=== PATIENT | male | born 1975 | race Native Hawaiian/Other Pacific Islander ===

== ENCOUNTER 2017-12-21 10:15 | Observation (INO) ==
[2017-12-21] MEDS ORDERED: Sod Chloride 0.9% Inj 1,000 ML IV.SIG ONE (11:10)
--- NOTE | 2017-12-21 11:34 | ED ---
HPI General Chief Complaint: Abdominal Pain Stated Complaint: poss kidney stone Time Seen by Provider: 12/21/17 11:10 Source: patient Mode of arrival: ambulatory Limitations: no limitations History of Present Illness HPI narrative: 42-year-old male the presents to the ED for evaluation of right flank pain that is not improving. Patient was seen here on 17 December for evaluation of same. It was found to have by 5 mm stone with some mild hydronephrosis on the right kidney. He was given pain medication and Flomax. He states that he has been compliant with the medications with the pain continues and keeps coming and going. He is very concerned that his kidney function remained to be doing well and because of all the medications he is taking that his liver might be trouble. Per patient he tried to get in contact with multiple physicians but he was unsuccessful at getting an appointment. He denies any chest pain or shortness of breath. Per patient the pain comes every 2 hours. Per patient has been taking diclofenac sodium, Lortab and Percocet. Per patient she believes that he needs to be admitted for further evaluation and possible kidney stone removal. Currently states that his pain is 3 out of 10 but he knows the ones we given pain meds his pain will go away and then come back in 2 hours. She denies any other medical issues. Per patient when the pain gets severe is 10 out of 10 Related Data Home Medications Medication Instructions Recorded Confirmed metformin 500 mg PO BID 12/17/17 12/21/17 rosuvastatin [Crestor] 5 mg PO HS 12/17/17 12/21/17 Previous Rx's Medication Instructions Recorded hydrocodone-acetaminophen [Vicodin] 1 tab PO Q6H PRN #3 tab 12/17/17 ketorolac 10 mg PO Q6H PRN 5 Days #14 tab 12/17/17 tamsulosin [Flomax] 0.4 mg PO DAILY #30 cap 12/17/17 Allergies Allergy/AdvReac Type Severity Reaction Status Date / Time No Known Allergies Allergy Verified 12/21/17 10:33 Review of Systems ROS: all other systems reviewed are negative [facility] Medical History Medical History Kidney stone (Acute) Diabetes (Acute) Hyperlipidemia (Acute) Surgical History Surgical History No history of previous surgery (Acute) Social History Social History Substance History: No History of Abuse Second Hand Smoke Exposure: No Smoking Status: Never smoker How Often Do You Have a Drink Containing Alcohol: Never Recent Travel in [facility] within the Last 8 Weeks: No Recent Out of Country Travel within the Last 8 Weeks: Yes Immunization History Tetanus Immunization: Unsure Hx Influenza Vaccine This Season: Yes Exam Narrative Exam Narrative: GENERAL: Well-appearing SKIN: Focused skin assessment warm/dry. HEAD: Atraumatic. Normocephalic. EYES: Pupils equal and round. No scleral icterus. No injection or drainage. ENT: No nasal bleeding or discharge. Mucous membranes pink and moist. Tongue is midline. No uvula deviation. NECK: Trachea midline. No JVD. CARDIOVASCULAR: Regular rate and rhythm. No murmur appreciated. RESPIRATORY: No accessory muscle use. Clear to auscultation. Breath sounds equal bilaterally. GASTROINTESTINAL: Abdomen soft, non-tender, nondistended. Hepatic and splenic margins not palpable. MUSCULOSKELETAL: No obvious deformities. No clubbing. No cyanosis. No edema. Full range of motion of the upper and lower extremities bilaterally. 2+ pulses bilaterally. Reproducible pain on the right flank. NEUROLOGICAL: Awake and alert. No obvious cranial nerve deficits. Motor grossly within normal limits. Normal speech. PSYCHIATRIC: Appropriate mood and affect; insight and judgment normal. Course Initial Documented Vital Signs Temperature 98.4 F 12/21/17 10:23 Pulse Rate 77 12/21/17 10:23 Respiratory Rate 17 12/21/17 10:23 Blood Pressure 135/69 12/21/17 10:23 Pulse Oximetry 98 12/21/17 10:23 Last Documented Vital Signs Temperature 98.4 F 12/21/17 10:23 Pulse Rate 78 12/21/17 10:30 Respiratory Rate 20 12/21/17 10:30 Blood Pressure 135/69 12/21/17 10:23 Pulse Oximetry 95 12/21/17 10:30 Medical Decision Making MDM Narrative Medical decision making narrative: 42-year-old male the presents to the ED for evaluation of possible kidney stone. Patient was properly examined and was found to have signs and symptoms consistent with appears to be likely kidney stone. Very likely has not passed. Labs and imaging order. Patient was given IV fluids. Patient at this time prefers no pain meds as he just took a Percocet before coming. Labs essentially negative. Dr Jesus got in contact with me as patient knows him personally and he recommended admission to medicine for procedure to be done tonight. NPO. This was discussed with patient who agreed with plan. Dr Bonilla agreed with admission. My attending Dr Johnson was made aware of findings and agrees with plan. Differential Diagnosis Differential Diagnosis: Kidney stone versus hydronephrosis versus kidney disease versus intractable pain Medical Records Medical records reviewed: Yes I reviewed the patient's medical records. Lab Data Lab results reviewed: Yes I reviewed the patient's lab results. Lab results narrative: UA shows blood Result diagrams: 12/21/17 11:00 12/21/17 11:00 Lab Results 12/21/17 12/21/17 12/21/17 Range/Units 11:00 11:00 11:50 WBC 5.5 (4.0-11.0) th/mm3 RBC 4.38 L (4.50-5.90) mil/mm3 Hgb 13.2 (13.0-17.0) gm/dL Hct 37.6 L (39.0-51.0) % MCV 85.8 (80.0-100.0) fL MCH 30.2 (27.0-34.0) pg MCHC 35.2 (32.0-36.0) % RDW 13.2 (11.6-17.2) % Plt Count 255 (150-450) th/mm3 MPV 7.3 (7.0-11.0) fL Neut % (Auto) 58.6 (16.0-70.0) % Lymph % (Auto) 29.9 (9.0-44.0) % [place] % (Auto) 9.7 H (0.0-8.0) % Eos % (Auto) 1.2 (0.0-4.0) % Baso % (Auto) 0.6 (0.0-2.0) % Neut # (Auto) 3.2 (1.8-7.7) th/mm3 Lymph # (Auto) 1.7 (1.0-4.8) th/mm3 [place] # (Auto) 0.5 (0.0-0.9) th/mm3 Eos # (Auto) 0.1 (0.0-0.4) th/mm3 Baso # (Auto) 0.0 (0.0-0.2) th/mm3 WBC Differential . Differential Comment Auto diff final Sodium 140 (136-145) meq/L Potassium 3.6 (3.5-5.1) meq/L Chloride 107 (98-107) meq/L Carbon Dioxide 27.1 (21.0-32.0) meq/L Anion Gap 6 (5-15) meq/L BUN 12 (7-18) mg/dL Creatinine 1.10 (0.60-1.30) mg/dL Estimated GFR 73 L (>89) mL/min Random Glucose 175 H (74-106) mg/dL Calcium 8.7 (8.5-10.1) mg/dL Urine Color Yellow (Yellw/Straw) Urine Clarity Clear (Clear) Urine pH 5.0 (5.0-8.5) Ur Specific [place] 1.010 (1.002-1.035) Urine Protein Negative (Neg-Trace) mg/dL Urine Glucose (UA) Negative (Negative) mg/dL Urine Ketones Negative (Negative) mg/dL Urine Occult Blood Moderate H (Negative) Urine Nitrate Negative (Negative) Urine Bilirubin Negative (Negative) Urine Urobilinogen Less than 2 (Less than 2) mg/dL Ur Leukocyte Esterase Trace H (Negative) Urine RBC 2 (0-3) /hpf Urine WBC 10 H (0-5) /hpf Micro UA Comment Culture indicated Urine Culture Comments Culture indicated Discharge Plan Discharge Disposition Patient Disposition: 30 Still Patient Discharge Details Diagnosis: Kidney stone on right side Physicians Team ED Provider: Sammie Johnson ED Midlevel Provider: Orlando Streeter Primary Care Provider: Primary Care Zainab Telles Rxs /Orders / Referrals /Forms Prescriptions: No Action metformin 500 mg Tablet 500 mg PO BID RF: 0 rosuvastatin [Crestor] 5 mg Tablet 5 mg PO HS RF: 0 ketorolac 10 mg tablet 10 mg PO Q6H PRN (Reason: pain) 5 Days Qty: 14 RF: 0 tamsulosin [Flomax] 0.4 mg capsule,extended release 24hr 0.4 mg PO DAILY Qty: 30 RF: 0 hydrocodone-acetaminophen [Vicodin] 5-300 mg tablet 1 tab PO Q6H PRN (Reason: Acute pain) Qty: 3 RF: 0 Discharge Interventions Interventions: Vital Signs Last Done: 12/21/17 10:30 Status ED Status: With Doctor
[2017-12-21] MEDS ORDERED: Esmolol Bolus Inj 100 MG/10 ML Vial IV.PUSH ONE (12:00)
[2017-12-21] MEDS ORDERED: Succinylcholine Inj 100 MG/5 ML Syringe IV.PUSH ONE (12:00)
[2017-12-21] MEDS ORDERED: Metoprolol Inj 5 MG/5 ML Vial IV.PUSH ONE (12:00)
[2017-12-21] MEDS ORDERED: Glycopyrrolate Inj 1 MG/5 ML Syringe IV.PUSH ONE (12:00)
[2017-12-21] MEDS ORDERED: Lidocaine PF 1% Inj 5 ML Syringe INFILTRATN ONE (12:00)
[2017-12-21] MEDS ORDERED: Neostigmine Inj 5 MG/5 ML Syringe IV.PUSH ONE (12:00)
[2017-12-21 12:02] LABS: Baso % (Auto) 0.6 % (0.0-2.0); Eos # (Auto) 0.1 th/mm3 (0.0-0.4); Eos % (Auto) 1.2 % (0.0-4.0); Hematocrit 37.6 % (39.0-51.0); Hemoglobin 13.2 gm/dL (13.0-17.0); Lymph # (Auto) 1.7 th/mm3 (1.0-4.8); Lymph % (Auto) 29.9 % (9.0-44.0); Mean Corpuscular HGB Conc 35.2 % (32.0-36.0); Mean Corpuscular Hemoglobin 30.2 pg (27.0-34.0); Mean Corpuscular Volume 85.8 fL (80.0-100.0); Mean Platelet Volume 7.3 fL (7.0-11.0); Mono # (Auto) 0.5 th/mm3 (0.0-0.9); Mono % (Auto) 9.7 % (0.0-8.0); Neut # (Auto) 3.2 th/mm3 (1.8-7.7); Neut % (Auto) 58.6 % (16.0-70.0); Platelet Count 255 th/mm3 (150-450); Red Blood Count 4.38 mil/mm3 (4.50-5.90); Red Cell Distribution Width 13.2 % (11.6-17.2); White Blood Count 5.5 th/mm3 (4.0-11.0)
[2017-12-21 12:07] LABS: Bilirubin,Urine Negative (Negative); Clarity,Urine Clear (Clear); Color,Urine Yellow (Yellw/Straw); Glucose,Urine (UA) Negative (Negative); Leukocyte Esterase,Urine Trace (Negative); Nitrite,Urine Negative (Negative)
[2017-12-21 12:17] LABS: Calcium 8.7 mg/dL (8.5-10.1); Carbon Dioxide 27.1 meq/L (21.0-32.0); Potassium 3.6 meq/L (3.5-5.1)
[2017-12-21] MEDS ORDERED: Bisacodyl 10 MG Supp RECTAL PRN (12:29)
[2017-12-21] MEDS ORDERED: Sod Chloride 0.9% Inj 1,000 ML IV.CONT SCH (12:30)
[2017-12-21] MEDS ORDERED: Morphine Inj 4 MG/ML Vial IV.PUSH PRN (12:33)
[2017-12-21] MEDS ORDERED: Ketorolac Inj 30 MG/ML (IVP) Vial IV.PUSH PRN ×2 (12:33)
[2017-12-21] MEDS ORDERED: Naloxone Inj 0.4 MG/ML Vial IV.PUSH PRN (12:33)
[2017-12-21] MEDS ORDERED: Acetaminophen 325 MG Tablet PO PRN (12:33)
[2017-12-21] MEDS ORDERED: Dextrose 50% in Water 50 ML Vial IV.PUSH PRN (12:34)
--- NOTE | 2017-12-21 13:31 | P.HPIM ---
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 He reports decreased urine output over the past few days along with symptoms of nausea and poor appetite. He denies symptoms of dysuria ,urinary frequency, nor hematuria. He states that he knows Dr. Jesus, urologist who recommended him coming to the hospital for surgical intervention due to his persistent worsening pain. He denies any other changes in his bowel movement. He denies diarrhea nor constipation. He was seen here in the emergency room and had a CAT scan performed on December 13 which showed right distal 5 mm ureteral calculus. - Diagnosis (1) Kidney stone on right side Review of Systems All other systems reviewed negative except as stated in HPI PMF[facility] - History History Provided By: Patient - Medical History Medical History: Medical History (Last Reviewed 12/21/17 @ 13:22 by Le Bonilla MD) Kidney stone Diabetes Hyperlipidemia - Surgical History Surgical History: Surgical History (Last Reviewed 12/21/17 @ 13:22 by Le Bonilla MD) No history of previous surgery - Tobacco History Second Hand Smoke Exposure: No Smoking Status: Never smoker - Alcohol History How Often Do You Have a Drink Containing Alcohol: Never - Substance Use History Substance History: No History of Abuse - Travel History Recent Travel in the [place] Within the Last 8 Weeks: No Recent Travel Out of the Country Within the Last 8 Weeks: Yes - Immunization History Tetanus Immunization: Unsure Hx Influenza Vaccine This Season: Yes Medications and Allergies Active Medications: Active Medications Acetaminophen (Tylenol) 650 mg PO Q6HR PRN PRN Reason: PAIN SCALE 1 TO 2 Al Hydroxide/Mg Hydroxide (Milk Of Magnesia Liq) 30 ml PO Q12H PRN PRN Reason: Mild Constipation Bisacodyl (Dulcolax Supp) 10 mg RECTAL DAILY PRN PRN Reason: SEVERE CONSITIPATION Dextrose (D50w Vial) 50 ml IV.PUSH UNSCH PRN PRN Reason: PER HYPOGLYCEMIA PROTOCOL Glucagon (Glucagon Inj) 1 mg OTHER PRN PRN PRN Reason: for Hypoglycemia Protocol Sodium Chloride (Ns Inj) 1,000 mls @ 100 mls/hr IV.CONT .Q10H YORDY Insulin Aspart (Novolog Insulin Correctional Sugar Inj) 0 unit SQ ACHS YORDY; Protocol Ketorolac Tromethamine (Toradol Inj) 15 mg IV.PUSH Q6H PRN PRN Reason: PAIN 3-5; IF UABLE TO TAKE PO Stop: 12/26/17 12:32 Ketorolac Tromethamine (Toradol Inj) 30 mg IV.PUSH Q6H PRN PRN Reason: PAIN 6-10;IF UNABLE TO TAKE PO Stop: 12/26/17 12:32 Lactulose (Lactulose Liq) 30 ml PO DAILY PRN PRN Reason: SEVERE CONSITIPATION Metformin HCl (Glucophage) 500 mg PO BID [facility] Morphine Sulfate (Morphine Inj) 4 mg IV.PUSH Q3H PRN PRN Reason: BREAKTHROUGH PAIN Naloxone HCl (Narcan Inj) 0.4 mg IV.PUSH UNSCH PRN PRN Reason: SEE LABEL COMMENTS Non-Formulary Medication (Rosuvastatin) 5 mg PO HS [facility] Ondansetron HCl (Zofran Inj) 4 mg IV.PUSH Q6H PRN PRN Reason: NAUSEA OR VOMITING Sennosides (Senokot) 17.2 mg PO Q12H PRN PRN Reason: Moderate Constipation Tamsulosin HCl (Flomax) 0.4 mg PO DAILY [facility] Allergies Allergy/AdvReac Type Severity Reaction Status Date / Time No Known Allergies Allergy Verified 12/21/17 10:33 Home Medications Medication Instructions Recorded Confirmed Type metformin 500 mg PO BID 12/17/17 12/21/17 History rosuvastatin [Crestor] 5 mg PO HS 12/17/17 12/21/17 History Exam Vital signs: Vital Signs 12/21/17 10:23 12/21/17 10:30 Temperature 98.4 F Pulse Rate 77 78 Respiratory Rate 17 20 Blood Pressure 135/69 Pulse Oximetry 98 95 Intake & Output 12/20/17 12/21/17 12/21/17 18:59 06:59 18:59 Weight 90.718 kg Narrative: GENERAL: Well-nourished well-developed pleasant male no acute distress SKIN: Warm and dry. HEAD: Atraumatic. Normocephalic. EYES: Pupils equal and round. No scleral icterus. No injection or drainage. ENT: No nasal bleeding or discharge. Mucous membranes pink and moist. NECK: Trachea midline. No JVD. CARDIOVASCULAR: Regular rate and rhythm. RESPIRATORY: No accessory muscle use. Clear to auscultation. Breath sounds equal bilaterally. GASTROINTESTINAL: Abdomen soft, non-tender, nondistended. Normoactive bowel sounds, no CVA tenderness hepatic and splenic margins not palpable. MUSCULOSKELETAL: Extremities without clubbing, cyanosis, or edema. No obvious deformities. NEUROLOGICAL: Awake and alert to person place time. No obvious cranial nerve deficits. Motor grossly within normal limits. Five out of 5 muscle strength in the arms and legs. Normal speech. PSYCHIATRIC: Appropriate mood and affect; insight and judgment normal. Results - Labs CBC & Chem 7: 12/21/17 11:00 12/21/17 11:00 Labs: Short CBC 12/21/17 Range/Units 11:00 WBC 5.5 (4.0-11.0) th/mm3 Hgb 13.2 (13.0-17.0) gm/dL Hct 37.6 L (39.0-51.0) % Plt Count 255 (150-450) th/mm3 BMP 12/21/17 11:00 Sodium 140 Potassium 3.6 Chloride 107 Carbon Dioxide 27.1 BUN 12 Creatinine 1.10 Calcium 8.7 Urine 12/21/17 Range/Units 11:50 Urine Color Yellow (Yellw/Straw) Urine Clarity Clear (Clear) Urine pH 5.0 (5.0-8.5) Ur Specific [place] 1.010 (1.002-1.035) Urine Protein Negative (Neg-Trace) mg/dL Urine Glucose (UA) Negative (Negative) mg/dL Caprini VTE Risk Assessment Caprini VTE Risk Assessment: No/Low Risk (score <= 1) Caprini Risk Assessment Model: Point Value = 1 Point Value = 2 Point Value = 3 Point Value = 5 Age 41-60 Minor surgery BMI > 25 kg/m2 Swollen legs Varicose veins or History of unexplained or recurrent spontaneous Oral contraceptives or hormone replacement Sepsis (< 1 month) Serious lung disease, including pneumonia (< 1 month) Abnormal pulmonary function Acute myocardial infarction Congestive heart failure (< 1 month) History of inflammatory bowel disease Medical patient at bed rest Age 61-74 Arthroscopic surgery Major open surgery (> 45 min) Laparoscopic surgery (> 45 min) Malignancy Confined to bed (> 72 hours) Immobilizing plaster cast Central venous access Age >= 75 History of VTE Family history of VTE Factor V Leiden Prothrombin [id number] Lupus anticoagulant Anticardiolipin antibodies Elevated serum homocysteine Heparin-induced thrombocytopenia Other congenital or acquired thrombophilia Stroke (< 1 month) Elective arthroplasty Hip, pelvis, or leg fracture Acute spinal cord injury (< 1 month) Prophylaxis Regimen: Total Risk Factor Score Risk Level Prophylaxis Regimen 0-1 Low Early ambulation 2 Moderate Order ONE of the following: *Sequential Compression Device (SCD) *Heparin 5000 units SQ BID 3-4 Higher Order ONE of the following medications: *Heparin 5000 units SQ TID *Enoxaparin/Lovenox 40 mg SQ daily (WT < 150 kg, CrCl > 30 mL/min) *Enoxaparin/Lovenox 30 mg SQ daily (WT < 150 kg, CrCl > 10-29 mL/min) *Enoxaparin/Lovenox 30 mg SQ BID (WT < 150 kg, CrCl > 30 mL/min) AND/OR *Sequential Compression Device (SCD) 5 or more Highest Order ONE of the following medications: *Heparin 5000 units SQ TID (Preferred with Epidurals) *Enoxaparin/Lovenox 40 mg SQ daily (WT < 150 kg, CrCl > 30 mL/min) *Enoxaparin/Lovenox 30 mg SQ daily (WT < 150 kg, CrCl > 10-29 mL/min) *Enoxaparin/Lovenox 30 mg SQ BID (WT < 150 kg, CrCl > 30 mL/min) AND *Sequential Compression Device (SCD) Assessment and Plan - Assessment (1) Kidney stone on right side Code(s): N20.0 - Calculus of kidney Status: Acute - Plan 42-year-old white male presents to the emergency room with persistent right flank and right sided abdominal pain with a recent diagnosis of right distal 5 mm ureteral calculus on December 17 in the emergency room. 1. Persistent intractable right flank pain with history of right distal ureteral calculusplace patient observation with IV fluid hydration, IV Toradol with IV morphine for breakthrough pain. Will consult his urologist Dr. Jesus for further recommendations. Continue with Flomax. 2. Diabetes mellitus type 2metformin with sliding scale insulin when p.o. is resumed. 3. Hyperlipidemia Resume statin 4. DVT prophylaxisNo mechanical or pharmaceutical VTE prophalaxis administered due to patient's low risk assessment of VTE. Encouraged ambulation.
--- NOTE | 2017-12-21 14:01 | P.CONURO ---
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 He was seen at [facility] on 12/17/17 in the emergency room and had a CAT scan performed on December 17 which showed right distal 5 mm ureteral calculus. He still did not pass that stone. no f/c/n/v, no hematuria, states may be his urine output is slightly decreased but major issue is a right flank and abd pain since 6PM yesterday until midnight without relieve by pain meds. At the present time after Percocet pain is improving. Lst time he ate at 8am Review of Systems All other systems reviewed negative except as stated in [facility]PI [facility] - History History Provided By: Patient - Medical History Medical History: Medical History (Last Reviewed 12/21/17 @ 13:22 by Le Bonilla MD) Kidney stone Diabetes Hyperlipidemia - Surgical History Surgical History: Surgical History (Last Reviewed 12/21/17 @ 13:22 by Le Bonilla MD) No history of previous surgery - Tobacco History Second Hand Smoke Exposure: No Smoking Status: Never smoker - Alcohol History How Often Do You Have a Drink Containing Alcohol: Never - Substance Use History Substance History: No History of Abuse - Travel History Recent Travel in the [place] Within the Last 8 Weeks: No Recent Travel Out of the Country Within the Last 8 Weeks: Yes - Immunization History Tetanus Immunization: Unsure Hx Influenza Vaccine This Season: Yes Medications and Allergies Active Medications: Active Medications Acetaminophen (Tylenol) 650 mg PO Q6HR PRN PRN Reason: PAIN SCALE 1 TO 2 Al Hydroxide/Mg Hydroxide (Milk Of Magnesia Liq) 30 ml PO Q12H PRN PRN Reason: Mild Constipation Atorvastatin Calcium (Lipitor) 10 mg PO HS YORDY Bisacodyl (Dulcolax Supp) 10 mg RECTAL DAILY PRN PRN Reason: SEVERE CONSITIPATION Dextrose (D50w Vial) 50 ml IV.PUSH UNSCH PRN PRN Reason: PER HYPOGLYCEMIA PROTOCOL Glucagon (Glucagon Inj) 1 mg OTHER PRN PRN PRN Reason: for Hypoglycemia Protocol Sodium Chloride (Ns Inj) 1,000 mls @ 100 mls/hr IV.CONT .Q10H YORDY Insulin Aspart (Novolog Insulin Correctional Sugar Inj) 0 unit SQ ACHS YORDY; Protocol Ketorolac Tromethamine (Toradol Inj) 15 mg IV.PUSH Q6H PRN PRN Reason: PAIN 3-5; IF UABLE TO TAKE PO Stop: 12/26/17 12:32 Ketorolac Tromethamine (Toradol Inj) 30 mg IV.PUSH Q6H PRN PRN Reason: PAIN 6-10;IF UNABLE TO TAKE PO Stop: 12/26/17 12:32 Lactulose (Lactulose Liq) 30 ml PO DAILY PRN PRN Reason: SEVERE CONSITIPATION Metformin HCl (Glucophage) 500 mg PO BID [facility] Morphine Sulfate (Morphine Inj) 4 mg IV.PUSH Q3H PRN PRN Reason: BREAKTHROUGH PAIN Naloxone HCl (Narcan Inj) 0.4 mg IV.PUSH UNSCH PRN PRN Reason: SEE LABEL COMMENTS Ondansetron HCl (Zofran Inj) 4 mg IV.PUSH Q6H PRN PRN Reason: NAUSEA OR VOMITING Sennosides (Senokot) 17.2 mg PO Q12H PRN PRN Reason: Moderate Constipation Tamsulosin HCl (Flomax) 0.4 mg PO DAILY [facility] Allergies Allergy/AdvReac Type Severity Reaction Status Date / Time No Known Allergies Allergy Verified 12/21/17 10:33 Home Medications Medication Instructions Recorded Confirmed Type metformin 500 mg PO BID 12/17/17 12/21/17 History rosuvastatin [Crestor] 5 mg PO HS 12/17/17 12/21/17 History Physical Exam Vital Signs - 24 hr 12/21/17 10:23 12/21/17 10:30 12/21/17 13:00 Temperature 98.4 F Pulse Rate 77 78 76 Respiratory Rate 17 20 18 Blood Pressure 135/69 124/79 Pulse Oximetry 98 95 99 Physical Exam: GENERAL: This is a well-nourished, well-developed patient, in no apparent distress. HEAD: Atraumatic. Normocephalic. CARDIOVASCULAR: Regular rate and rhythm without murmurs, gallops, or rubs. RESPIRATORY: Clear to auscultation. Breath sounds equal bilaterally. No wheezes , rales, or rhonchi. GASTROINTESTINAL: Abdomen soft, non-tender, nondistended. GENITOURINARY: Mild right CVAT. Bladder is not distended MUSCULOSKELETAL: Extremities without clubbing, cyanosis, or edema.Negative Homans sign bilaterally. NEUROLOGICAL: Awake and alert. Laboratory Results - last 24 hr 12/21/17 12/21/17 12/21/17 11:00 11:00 11:50 WBC 5.5 RBC 4.38 L Hgb 13.2 Hct 37.6 L MCV 85.8 MCH 30.2 MCHC 35.2 RDW 13.2 Plt Count 255 MPV 7.3 Neut % (Auto) 58.6 Lymph % (Auto) 29.9 [place] % (Auto) 9.7 H Eos % (Auto) 1.2 Baso % (Auto) 0.6 Neut # (Auto) 3.2 Lymph # (Auto) 1.7 [place] # (Auto) 0.5 Eos # (Auto) 0.1 Baso # (Auto) 0.0 WBC Differential . Differential Comment Auto diff final Sodium 140 Potassium 3.6 Chloride 107 Carbon Dioxide 27.1 Anion Gap 6 BUN 12 Creatinine 1.10 Estimated GFR 73 L POC Glucose Random Glucose 175 H Calcium 8.7 Urine Color Yellow Urine Clarity Clear Urine pH 5.0 Ur Specific [place] 1.010 Urine Protein Negative Urine Glucose (UA) Negative Urine Ketones Negative Urine Occult Blood Moderate H Urine Nitrate Negative Urine Bilirubin Negative Urine Urobilinogen Less than 2 Ur Leukocyte Esterase Trace H Urine RBC 2 Urine WBC 10 H Micro UA Comment Culture indicated Urine Culture Comments Culture indicated 12/21/17 13:32 WBC RBC Hgb Hct MCV MCH MCHC RDW Plt Count MPV Neut % (Auto) Lymph % (Auto) [place] % (Auto) Eos % (Auto) Baso % (Auto) Neut # (Auto) Lymph # (Auto) [place] # (Auto) Eos # (Auto) Baso # (Auto) WBC Differential Differential Comment Sodium Potassium Chloride Carbon Dioxide Anion Gap BUN Creatinine Estimated GFR POC Glucose 121 H Random Glucose Calcium Urine Color Urine Clarity Urine pH Ur Specific [place] Urine Protein Urine Glucose (UA) Urine Ketones Urine Occult Blood Urine Nitrate Urine Bilirubin Urine Urobilinogen Ur Leukocyte Esterase Urine RBC Urine WBC Micro UA Comment Urine Culture Comments Result Diagrams: 12/21/17 11:00 12/21/17 11:00 Imaging: CT abd/pelvis 12/17/17 CONCLUSION: 1. 5 mm distal right ureteral calculus with mild hydronephrosis. Assessment and Plan - Plan 42y.o M with right 5mm distal ureteral obstructing stone - Continue care as per ER team IV fluids and pain control - Keep pt NPO - He will be taken to OR around 5-6pm by Dr Jesus for Right USE vs just right ureteral stent placement Further recommendations after procedure Discussed Condition With: Dr Jesus who agrees with this plan
--- NOTE | 2017-12-21 16:56 | P.PNURO ---
Subjective Patient symptoms today: Successful right ureteroscopy and stone basket extraction. Stone located in the distal right ureter and was able to be removed via basket. No stent was placed. -Patient may remain overnight for observation -Continue PO abx, Cipro x 5 days total -AZO for dysuria -Discharge once medically stable with followup in Urology clinic in 2 weeks -Please call with questions Objective Vital Signs: Vital Signs 12/21/17 10:23 12/21/17 10:30 12/21/17 13:00 Temperature 98.4 F Pulse Rate 77 78 76 Respiratory Rate 17 20 18 Blood Pressure 135/69 124/79 Pulse Oximetry 98 95 99 Intake & Output 12/20/17 12/21/17 12/21/17 18:59 06:59 18:59 Weight 90.718 kg Result Diagrams: 12/21/17 11:00 12/21/17 11:00 Medications and IVs: Active Medications Generic Name Dose Route Start Last Admin Trade Name Freq PRN Reason Stop Dose Admin Acetaminophen 650 mg 12/21/17 12:33 Tylenol PO Q6HR PRN PAIN SCALE 1 TO 2 Al Hydroxide/Mg Hydroxide 30 ml 12/21/17 12:29 Milk Of Magnesia Liq PO Q12H PRN Mild Constipation Atorvastatin Calcium 10 mg 12/21/17 21:00 Lipitor PO HS YORDY Bisacodyl 10 mg 12/21/17 12:29 Dulcolax Supp RECTAL DAILY PRN SEVERE CONSITIPATION Dextrose 50 ml 12/21/17 12:34 D50w Vial IV.PUSH UNSCH PRN PER HYPOGLYCEMIA PROTOCOL Glucagon 1 mg 12/21/17 12:34 Glucagon Inj OTHER PRN PRN for Hypoglycemia Protocol Sodium Chloride 1,000 mls @ 100 mls/hr 12/21/17 12:30 12/21/17 14:49 Ns Inj IV.CONT 100 mls/hr .Q10H YORDY Administration Insulin Aspart 0 unit 12/21/17 17:00 Novolog Insulin Correctional Sugar Inj SQ ACHS YORDY Protocol Ketorolac Tromethamine 15 mg 12/21/17 12:33 Toradol Inj IV.PUSH 12/26/17 12:32 Q6H PRN PAIN 3-5; IF UABLE TO TAKE PO Ketorolac Tromethamine 30 mg 12/21/17 12:33 Toradol Inj IV.PUSH 12/26/17 12:32 Q6H PRN PAIN 6-10;IF UNABLE TO TAKE PO Lactulose 30 ml 12/21/17 12:29 Lactulose Liq PO DAILY PRN SEVERE CONSITIPATION Metformin HCl 500 mg 12/21/17 21:00 Glucophage PO BID YORDY Morphine Sulfate 4 mg 12/21/17 12:33 Morphine Inj IV.PUSH Q3H PRN BREAKTHROUGH PAIN Naloxone HCl 0.4 mg 12/21/17 12:33 Narcan Inj IV.PUSH UNSCH PRN SEE LABEL COMMENTS Ondansetron HCl 4 mg 12/21/17 12:29 Zofran Inj IV.PUSH Q6H PRN NAUSEA OR VOMITING Sennosides 17.2 mg 12/21/17 12:29 Senokot PO Q12H PRN Moderate Constipation Tamsulosin HCl 0.4 mg 12/22/17 09:00 Flomax PO DAILY YORDY
[2017-12-21] MEDS ORDERED: Insulin NovoLOG Aspart Correctional Sugar Inj SQ SCH (17:00)
[2017-12-21] MEDS ORDERED: fentaNYL Citrate Inj 100 MCG/2 ML Ampul ONE (17:15)
[2017-12-21 18:06] VITALS: BP 112/70; PULSE 68; RESP 16; TEMP 97.2; O2SAT 97
--- NOTE | 2017-12-26 21:15 | MP ---
cc: Adam Jesus MD DATE OF OPERATION: 12/21/2017 PREOPERATIVE DIAGNOSIS: Right side nephrolithiasis. POSTOPERATIVE DIAGNOSIS: Right side nephrolithiasis. SURGEON: Adam Jesus MD PROCEDURES PERFORMED: 1. Cystoscopy. 2. Right ureteroscopy. 3. Stone basket extraction. PERTINENT FINDINGS: 1. Right distal ureteral stone noted. This was removed via basket extraction. 2. Ureter appeared to be healthy and intact, therefore no stent was placed postoperatively, HISTORY OF PRESENT ILLNESS: Blake Hyatt is a 42-year-old male who was found to have a right distal ureteral stone that was obstructing causing right-sided hydronephrosis and significant right flank pain. The patient presents now for treatment with a cystoscopy, ureteroscopy and stone basket extraction. PROCEDURE: After proper informed consent was obtained, the patient was brought to the operating room and laid supine on the operating table. Bilateral lower extremity SCDs were placed. The patient was placed under general anesthesia. The patient was placed in lithotomy position and prepped and draped in standard sterile fashion. After preoperative timeout was completed, a rigid cystoscope was inserted into urethra and bladder. Urethral mucosa was within normal limits without abnormalities or lesions identified. Upon entering the bladder, bilateral ureteral orifices were identified. At this point, the right orifice was identified, cannulated using a guidewire and passed up to the right renal pelvis. Fluoroscopy identified the stone located to be very distal in the right distal ureter. The ureteral orifice was rather tight and narrow. At this point, the semirigid ureteroscope was able to be advanced alongside the wire into the right distal ureter and the stone was immediately encountered. At this point, a 1.9 [place] 0 tip basket was then placed through the scope into the distal ureter. This was then used to grasp the stone and brought it out through the ureteral orifice and dropped out in the bladder. The ureteroscope was then readvanced into the right collecting system through the distal ureter up to the proximal ureter. No other abnormalities or lesions were identified. The ureteral caliber was normal and there was no evidence of obvious scarring or lesions. There was some mild narrowing of the right distal ureter, however. Otherwise, minimal to no trauma to the ureter. Therefore, a stent was not placed. At this point, the cystoscope was reinserted and the stone was removed from the bladder. The wire was also removed from the right collecting system. The patient's bladder was emptied and the scope was removed. The patient tolerated the patient well without complication. DISPOSITION: The patient will follow up in clinic. MD DEJUAN Willoughby/ , 08:23 PM , 08:29 PM
== END 2017-12-21 22:26 | disposition home or self-care (01) ==
LOC: NEDA 10:15 → NEPE 10:15 → NEPGCP 10:15
PROVIDERS: ADMIT Family Medicine; ATTEND Family Medicine
DX: N13.2 Hydronephrosis with renal and ureteral calculous obstruction; Z79.84 Long term (current) use of oral hypoglycemic drugs; E11.9 Type 2 diabetes mellitus without complications; E78.5 Hyperlipidemia, unspecified